=== PATIENT | female | born 1945 | race Caucasian/White ===

== ENCOUNTER 2019-08-16 13:29 | Outpatient (CLI) | payer MEDICARE, SELFPAY ==
--- NOTE | ~2019-08-16 | DEXA_ITS ---
Bone Density Report Name: Dang Wolf Age: 74 Sex: Female Ethnicity: White Date of : 1945 Indication: postmenopausal osteoporosis; monitoring treatment; height loss; prior fracture; hysterectomy; Referring Provider: Candice Beckford Study: Bone densitometry was performed. Exam Date: August 16, 2019 Accession number: [id number] Bone Density: Region BMD T-score Z-score Classification AP Spine (L1-L4) 0.734 -2.8 -0.4 Osteoporosis Femoral Neck (Left) 0.572 -2.5 -0.4 Osteoporosis Total Hip (Left) 0.725 -1.8 0.1 Osteopenia Total Hip Bilateral Avg 0.716 -1.9 0.0 Osteopenia Femoral Neck (Right) 0.538 -2.8 -0.7 Osteoporosis Total Hip (Right) 0.706 -1.9 -0.1 Osteopenia World Health Organization criteria for BMD impression classify patients as: Normal (T-score at or above -1.0), Osteopenia (T-score between -1.0 and -2.5), or Osteoporosis (T-score at or below -2.5). 10-year Fracture Risk: FRAX not reported because: Some T-score for Spine Total or Hip Total or Femoral Neck at or below -2.5 Treated for osteoporosis Previous Exams: Region Exam Age BMD T-score BMD Change BMD Change Date g/cm2 vs Baseline vs Previous AP Spine(L1-L4) 08/16/2019 74 0.734 -2.8 -0.125(-14.5%) -0.042(-5.4%)* 12/30/2014 69 0.776 -2.5 -0.083(-9.6%)# 0.060(8.4%)# 05/07/2011 66 0.716 -3.0 -0.143(-16.7%) 0.030(4.4%)* 03/26/2009 64 0.686 -3.3 -0.173(-20.2%) -0.058(-7.8%)* 12/28/2007 62 0.743 -2.8 -0.116(-13.5%) -0.116(-13.5%) 05/13/2005 60 0.859 -1.7 Total Hip(Left) 08/16/2019 74 0.725 -1.8 -0.062(-7.9%)# -0.033(-4.4%)* 04/25/2017 72 0.758 -1.5 -0.029(-3.7%)# -0.006(-0.8%) 12/30/2014 69 0.764 -1.5 -0.023(-2.9%)# 0.024(3.3%)# 05/07/2011 66 0.740 -1.7 -0.047(-6.0%)* 0.016(2.3%) 03/26/2009 64 0.724 -1.8 -0.063(-8.0%)* 0.011(1.5%) 12/28/2007 62 0.713 -1.9 -0.074(-9.4%)* -0.074(-9.4%)* 05/13/2005 60 0.787 -1.3 Total Hip(Right) 08/16/2019 74 0.706 -1.9 -0.042(-5.7%)# -0.026(-3.5%) 04/25/2017 72 0.731 -1.7 -0.017(-2.2%)# -0.011(-1.5%) 12/30/2014 69 0.742 -1.6 -0.006(-0.8%)# 0.025(3.4%)# 05/07/2011 66 0.718 -1.8 -0.030(-4.1%)* -0.002(-0.3%) 03/26/2009 64 0.720 -1.8 -0.028(-3.7%)* 0.013(1.9%) 12/28/2007 62 0.706 -1.9 -0.041(-5.5%)* -0.041(-5.5%)* 05/13/2005 60 0.748 -1.6 *Denotes significance at 95% confidence level, LSC for AP Spine = 0.022 g/cm2, LSC for Total Hip = 0.027 g/cm2 Clinical Information Provided by Patient:
== END 2019-08-16 13:30 | disposition home or self-care (01) ==
PROVIDERS: PCP Student in an Organized Health Care Education/Training Program; Visit Provider Student in an Organized Health Care Education/Training Program
DX: Z78.0 Asymptomatic menopausal state (principal); M85.89 Other specified disorders of bone density and structure, multiple sites; M81.0 Age-related osteoporosis without current pathological fracture
CPT/HCPCS: 77080

== ENCOUNTER 2020-07-09 12:36 | Outpatient (CLI) | payer MEDICARE, OTHER, SELFPAY ==
--- NOTE | ~2020-07-09 | MM_ITS ---
EXAMINATION: MM screening keith BI w hilary HISTORY: Screening mammogram TECHNIQUE: Craniocaudal and mediolateral oblique 3-D tomosynthesis images were obtained and synthetic 2-D images were generated. CAD analysis was submitted and interpreted. COMPARISON: 04/20/2019, 04/14/2018, 04/08/2017 BREAST PARENCHYMAL COMPOSITION: The breasts are heterogeneously dense, which may obscure small masses . FINDINGS: Scattered benign-appearing calcifications are present. There is no evidence of suspicious m ass, calcification, or architectural distortion to suggest malignancy in either breast. There has bee n no suspicious interval change. IMPRESSION: 1. No mammographic evidence of malignancy. 2. Recommend routine screening mammography in one year. BI-RADS Category 2: Benign finding(s). Reviewed, dictated and finalized at location A. RECEPTIONIST
== END 2020-07-09 12:37 | disposition home or self-care (01) ==
LOC: ANHIMG 12:41
PROVIDERS: PCP Student in an Organized Health Care Education/Training Program; Visit Provider Student in an Organized Health Care Education/Training Program
DX: Z12.31 Encounter for screening mammogram for malignant neoplasm of breast (principal)
CPT/HCPCS: 77063; 77067

== ENCOUNTER 2021-07-28 14:00 | Outpatient (CLI) | payer MEDICARE, OTHER, SELFPAY ==
--- NOTE | ~2021-07-28 | MM_ITS ---
EXAMINATION: MM screening keith BI w hilary HISTORY: Screening [id number] TECHNIQUE: Craniocaudal and mediolateral oblique 3-D tomosynthesis images were obtained and synthetic 2-D images were generated. CAD analysis was submitted and interpreted. COMPARISON: 07/09/2020, 04/20/2019, 04/14/2018 BREAST PARENCHYMAL COMPOSITION: The breasts are heterogeneously dense, which may obscure small masses . FINDINGS: Scattered benign-appearing calcifications are present. There is no evidence of suspicious m ass, calcification, or architectural distortion to suggest malignancy in either breast. There has bee n no suspicious interval change. IMPRESSION: 1. No mammographic evidence of malignancy. 2. Recommend routine screening mammography in one year. BI-RADS Category 2: Benign finding(s). Reviewed, dictated and finalized at location A. EIN PURIFICATION SCIENTIST
== END 2021-07-28 14:01 | disposition home or self-care (01) ==
LOC: ANHIMG 14:05
PROVIDERS: PCP Internal Medicine; Visit Provider Internal Medicine
DX: Z12.31 Encounter for screening mammogram for malignant neoplasm of breast (principal)
CPT/HCPCS: 77063; 77067

== ENCOUNTER 2022-09-15 11:50 | Outpatient (CLI) | payer MEDICARE, OTHER, SELFPAY ==
--- NOTE | ~2022-09-15 | MM_ITS ---
EXAMINATION: MM screening keith BI w hilary HISTORY: Screening mammogram TECHNIQUE: Craniocaudal and mediolateral oblique 3-D tomosynthesis images were obtained and synthetic 2-D images were generated. CAD analysis was submitted and interpreted. COMPARISON: 07/28/2021, 07/09/2020, 04/20/2019 bilateral screening mammogram examinations BREAST PARENCHYMAL COMPOSITION: The breasts are heterogeneously dense, which may obscure small masses . FINDINGS: Scattered bilateral benign calcifications. There is no evidence of suspicious mass, calcifi cation, or architectural distortion to suggest malignancy in either breast. There has been no suspici ous interval change. IMPRESSION: 1. No mammographic evidence of malignancy. 2. Recommend routine screening mammography in one year. BI-RADS Category 2: Benign finding(s). Reviewed, dictated and finalized at location A.
== END 2022-09-15 11:51 | disposition home or self-care (01) ==
LOC: ANHIMG 11:52
PROVIDERS: PCP Internal Medicine; Visit Provider Internal Medicine
DX: Z12.31 Encounter for screening mammogram for malignant neoplasm of breast (principal)
CPT/HCPCS: 77063; 77067